=== PATIENT | male | born 1950 | race Caucasian/White ===

== ENCOUNTER 2018-06-16 08:11 | Inpatient (IN) ==
[2018-06-16] MEDS ORDERED: ASPIRIN PO ONE (08:21)
[2018-06-16] MEDS ORDERED: NS 1,000 ML IV ONE ×2 (08:42)
--- NOTE | 2018-06-16 08:47 | PROVIDER DOCUMENTATION ---
HPI-Abdominal Pain/GI Problem - General Chief Complaint: Chest Pain Stated Complaint: V / D / CHEST PAIN Time Seen by Provider: 06/16/18 08:36 Allergies/Adverse Reactions: Patient Allergies Allergy/AdvReac Type Severity Reaction Status Date / Time No Known Allergies Allergy Verified 09/20/17 11:19 Home Medications: Home Medication List Medication Instructions Recorded Confirmed Last Taken Type Meloxicam [Mobic] 15 mg PO DAILY 07/26/14 07/03/17 11/11/16 History Tamsulosin [Flomax] 0.4 mg PO BID 07/26/14 07/03/17 11/11/16 09:00 History Montelukast Sodium [Singulair] 10 mg PO DAILY 04/06/16 07/03/17 11/11/16 History Cyclobenzaprine [Flexeril] 10 mg PO HS 06/14/16 07/03/17 11/11/16 History Dutasteride [Avodart] 0.5 mg PO DAILY 06/14/16 07/03/17 11/11/16 History Alprazolam 0.25 mg PO PRN PRN 07/03/17 07/03/17 Unknown History Amlodipine [Norvasc] 10 mg PO DAILY 07/03/17 07/03/17 Unknown History Amoxicillin/Potassium Clav 1 tab PO BID 07/03/17 07/03/17 Unknown History [Augmentin 875-125 Tablet] Fluticasone 50 Mcg Nasal Randolph 2 spray MELISSA BID 07/03/17 07/03/17 Unknown History [Flonase] Irbesartan/Hydrochlorothiazide 1 tab PO DAILY 07/03/17 08/18/17 Unknown History [Irbesartan-Hctz 300-12.5 mg Tb] Methylprednisolone [Medrol Dosepak] 4 mg PO DIRECTED 07/03/17 07/03/17 Unknown History Omeprazole 20 mg PO DAILY 07/03/17 07/03/17 Unknown History Sotalol HCl [Sotalol] 1 tab PO BID 08/18/17 08/18/17 Unknown History Terazosin HCl 2 mg PO QHS 08/18/17 08/18/17 Unknown History - History of Present Illness-ABD Nature of Presenting Problems: patient woke up this AM, abdomen was bloating then he was having diarrhea, vomited couple time. since then he had back pain, chest pain and palpatation. Abdominal Pain Onset Location: reports: generalized abdomen Pain Radiation: reports: no radiation Quality of Pain: reports: cramping Severity in ED: reports: moderate Onset/Duration: reports: 24 hours ago Timing: reports: improving Activities at Onset: reports: none Exposure to sick contacts?: No Modifying Factors: improves with: nothing Associated Symptoms: reports: chest pain, diarrhea, fatigue, malaise Last BM: unsure Dark Stools Present?: reports: none noticed Rectal Bleeding: reports: none Rectal Pain: reports: none Bruising or Bleeding Gums?: No Similar Symptoms Previously?: No Recently seen or treated by another doctor?: No Review of Systems - Adult - REVIEW OF SYSTEMS - ADULT Constitutional: reports: see HPIyolanda. denies: fever Eyes: reports: no symptoms reported Ears, Nose, Mouth & Throat: reports: no symptoms reported Cardiovascular: reports: see HPI, palpitations Respiratory: reports: no symptoms reported Gastrointestinal: reports: diarrhea, nausea, vomiting Genitourinary: reports: no symptoms reported Musculoskeletal: reports: back pain Integumentary: reports: no symptoms reported Neurological: reports: no symptoms reported Psychiatric: reports: no symptoms reported Endocrine: reports: no symptoms reported Hematologic/Lymphatic: reports: no symptoms reported Allergic/Immunologic: reports: no symptoms reported Past History - Adult - PAST MEDICAL HISTORY-ADULT Review of Records: reports: Nursing Assessment Review Major Childhood Illnesses: reports: denies history Cardiovascular: reports: A-Fib, HTN, hyperlipidemia Respiratory: reports: denies history Gastrointestinal: reports: denies history Obstetrical/Gynecological: reports: denies history Genitourinary: reports: prostatitis Musculoskeletal: reports: denies history Neurological: reports: denies history Endocrine/Immune: reports: denies history Other Conditions: reports: denies history - PRIOR SURGERIES/PROCEDURES Surgical/Procedure History: reports: hernia repair, other (heart ablasion) - PRIOR HOSPITALIZATIONS Prior Hospitalizations: reports: none - IMMUNIZATION STATUS Childhood Immunizations: See Nurse Assessment Flu Vaccine: See Nurse Assessment - FAMILY HISTORY Family History: reviewed, not pertinent Physical Exam-General - PHYSICAL EXAM-ADULT Initial Vital Signs Reviewed: Yes - CONSTITUTIONAL General Appearance: alert, no apparent distress - EYES Eyes: PERRL/EOMI - HEAD, EARS, NOSE, MOUTH & THROAT HENMT: normocephalic/atraumatic, moist mucous membranes - NECK Neck: non-tender, supple - RESPIRATORY Respiratory: chest non-tender, lungs clear - CARDIOVASCULAR Cardiovascular: normal peripheral pulses, no edema, no gallop, no JVD, no murmur , tachycardia - GASTROINTESTINAL (ABDOMEN) Abdominal Exam: normal bowel sounds, non tender - LYMPHATIC Lymphatic: no adenopathy - MUSCULOSKELETAL Back Exam: no CVA tenderness, no vertebral tenderness Extremity: non-tender, normal gait - SKIN Integumentary: normal color, normal turgor - NEUROLOGIC Neurologic: car wrecker II-XII nml as tested, grossly normal, no motor/sensory deficits Progress - PLAN OF CARE/RESULTS Progress/Plan/Lab Results: Vital Signs - 8 hr 06/16/18 08:26 Temperature 98.9 F Pulse Rate 130 H Respiratory Rate 18 Blood Pressure 145/95 Orders Category Date Time Status Cardiac Monitoring DIRECTED Care 06/16/18 08:21 Active Oxygen Therapy- ED Nursing DIRECTED Care 06/16/18 08:21 Active Saline Loc NOW Care 06/16/18 08:21 Active CHEST-2 VIEWS [RAD] Stat Exams 06/16/18 08:21 Ordered CBC WITH ELECTRONIC DIFF [HEME] Stat Lab 06/16/18 08:35 Ordered CK PROFILE [SP CHEM] Stat Lab 06/16/18 08:35 Ordered COMPREHENSIVE METABOLIC PANEL [CHEM] Stat Lab 06/16/18 08:35 Ordered PRO B-NATRIURETIC PEPTIDE Stat Lab 06/16/18 08:35 Ordered PROTIME WITH INR [COAG] Stat Lab 06/16/18 08:35 Ordered PTT [COAG] Stat Lab 06/16/18 08:35 Ordered TROPONIN T Stat Lab 06/16/18 08:35 Ordered Aspirin Med 06/16/18 08:21 Discontinued 325 mg PO NOW ONE Ns 1000 ml IV Bolus X1 Med 06/16/18 08:42 Ordered 0.9% Sodium Chloride Inj [Ns] 1,000 ml IV 999 mls/hr Ns 1000 ml IV Bolus X1 Med 06/16/18 08:42 Ordered 0.9% Sodium Chloride Inj [Ns] 1,000 ml IV 999 mls/hr CP/SOB/Palp >45 yrs of Age Stat Oth 06/16/18 08:21 Ordered EKG [EKG] Stat Ther 06/16/18 08:21 Ordered Result Diagrams: 06/16/18 08:40 06/16/18 08:40 - REASSESSMENT Reassessment #1 Status: improving (patient felt a little bit better but the heart rate was still fast at 125) - EKG 1 Rate: 130 Rhythm: sinus QRS: normal, other UT Interval: normal ST Wave: normal Comments: non specific ST/ QRS-T angle Departure - Departure Date of Disposition Decision: 06/16/18 Time of Disposition Decision: 13:29 DIAGNOSIS: Enteritis, Chest pain Disposition: ADMITTED INPATIENT 09 Certified Medical Emergency: Emergent Condition: Good - Critical Care Note This patient required my direct & personal management of CC.: No Attestation - Physician/ CHONG Attestation Patient care was provided by Advanced Practice Provider:: No The physician spent face to face time with patient:: Yes Advanced Practice Provider documentation review:: Supervising physician onsite and consulted in the evaluation and care of this patient. The physician did have a face to face encounter with the patient.
[2018-06-16 09:08] LABS: AGAP 13; ALBUMIN 4.2 g/dL (3.5-5.0); ALKALINE PHOSPHATASE 98 U/L (32-122); BUN 22 mg/dL (8-22); CALCIUM 8.4 mg/dL (8.8-10.2); CHLORIDE 96 mmol/L (98-107); CK PROFILE 41 U/L (24-204); COSMO 277; ESTIMATED GFR > 60; GLUCOSE 127 mg/dL (70-104); GOT 48 U/L (10-34); GPT 73 U/L (10-44); POTASSIUM 3.6 mmol/L (3.5-5.1); SODIUM 136 mmol/L (136-145); TCO2 27 mmol/L (25-35); TOTAL PROTEIN 7.3 g/dL (6.3-8.3)
--- NOTE | 2018-06-16 09:09 | Diag Imaging Result Doc PS360 ---
EXAM: CHEST-2 VIEWS HISTORY: chest pain TECHNIQUE: Chest two views COMPARISON: 12/20/2017 FINDINGS: The lungs are well expanded. The heart is not enlarged. The vessels are not distended. There are no infiltrates. No pleural effusions. IMPRESSION: No acute abnormality. Electronically signed by Joshua Recinos 06/16/2018 9:06 AM
[2018-06-16 09:17] LABS: BASO# 0.01 X1000 (0.0-0.2); BASO% 0.1 % (0.0-0.8); EOS% 0.8 % (0.0-10.0); HEMATOCRIT 43.7 % (42.0-52.0); HEMOGLOBIN 15.7 g/dL (14.0-18.0); IMM GRAN# 0.03 X1000 (0.0-0.04); IMM GRAN% 0.3 % (0.0-0.5); LYMPH# 0.47 X1000 (1.2-3.4); MCH 29.8 PG (27-31); MCHC 35.9 g/dL (33-37); MCV 83.1 FL (81-99); MONO# 0.64 X1000 (0.11-0.59); MONO% 5.4 % (1.7-9.3); MPV 9.2 FL (7.4-10.4); NEUT# 10.58 X1000 (1.4-6.5); NEUT% 89.4 % (42.2-75.2); PLT 177 X1000 (130-400); RBC 5.26 XMIL (4.7-6.1); RDW 13.3 % (11.5-14.5); WBC 11.83 X1000 (4.8-10.8)
[2018-06-16 09:26] LABS: INR 0.99; PROTIME 13.6 Seconds (11.0-16.0)
[2018-06-16 09:27] LABS: PTT 23.2 Seconds (22.3-41.8)
[2018-06-16] MEDS ORDERED: MORPHINE IV ONE (09:27)
[2018-06-16] MEDS ORDERED: ZOFRAN IV ONE (09:27)
--- NOTE | 2018-06-16 10:15 | Diag Imaging Result Doc PS360 ---
EXAM: CT ABD/PELVIS W/IV CONT ONLY HISTORY: LLQ pain, TECHNIQUE: CT abdomen and pelvis with intravenous contrast COMPARISON: 04/06/2016 FINDINGS: No calcified gallstones or adjacent inflammation. No focal hepatic abnormality. Normal spleen, pancreas, adrenal glands, and kidneys. No hydronephrosis. No aortic aneurysm. Moderate atherosclerosis. Mild fluid distended small bowel loops in the upper and mid abdomen. The distal small bowel loops are not dilated. No inflammation about the cecum. No abscess. There are scattered colonic diverticula. The prostate is enlarged measuring at least 5.3 x 5.9 x 6.3 cm. The urinary bladder is moderately distended and is normal. There are fat filled inguinal hernias, right greater than left. No bowel loops within these. IMPRESSION: 1.Partial small bowel obstruction versus enteritis and ileus 2.Diverticulosis 3.Enlarged prostate 4.Fat filled inguinal hernias This exam was performed using automated exposure control, adjustment of mA or kV according to patient size, and/or use of iterative reconstruction technique. Electronically signed by Joshua Recinos 06/16/2018 10:13 AM
--- NOTE | 2018-06-16 13:34 | HISTORY AND PHYSICAL ---
PRIMARY CARE PHYSICIAN: Maverick Mon DO CHIEF COMPLAINT: Abdominal bloating with nausea/vomiting and diarrhea this a.m. around 4 a.m. HISTORY OF PRESENTING ILLNESS: This is a 68-year-old male who presents to [facility] ER after he was awakened around 4 a.m. this morning with abdominal bloating and began having nausea/vomiting, and states he began vomiting up some stool and also having liquid diarrhea. States that he has been on 3 antibiotics over the past 1 to 2 weeks after being diagnosed with pneumonia. His workup in the emergency room showed a chest x-ray with no acute abnormality, an abdomen and pelvic CT that showed an impression of a partial small-bowel obstruction versus enteritis and ileus. He did have a slight elevation in his liver enzymes with an AST of 48, ALT 73, so he will be admitted for further evaluation and treatment. PAST MEDICAL HISTORY: Atrial fibrillation, hypertension, hyperlipidemia, and prostatitis. PAST SURGICAL HISTORY: Hernia repair and a heart ablation. FAMILY HISTORY: Reviewed and noncontributory. SOCIAL HISTORY: Currently lives with family. Denies any tobacco, alcohol, or illicit drug use. ALLERGIES: He has no known drug allergies. HOME MEDICATIONS: A current list will need to be obtained reconciled, reviewed, then restarted as appropriate. We will place an order for Nursing to update and confirm home medications. DIAGNOSTIC STUDIES: Laboratory data showed a white blood cell count of 11.83, hemoglobin 15.7, hematocrit 43.7, platelets 177,000. PT of 13.6 and INR 0.99. Sodium 136, potassium 3.6, chloride 96, CO2 of 27, BUN of 22, creatinine 1, glucose 127, AST of 48, ALT 73. Cardiac enzyme was negative. ProBNP of 117. Chest x-ray showed no acute abnormality. CT of the abdomen and pelvis with IV contrast showed a partial small-bowel obstruction versus enteritis and ileus, diverticulosis, enlarged prostate, and a fat-filled inguinal hernia. REVIEW OF SYSTEMS: He denied any fever, chills, blurred vision, dizziness, chest pain, coughing, shortness of breath. He has had abdominal bloating, nausea/vomiting, and diarrhea. Denied any burning or hurting with urination. PHYSICAL EXAMINATION: VITAL SIGNS: On arrival he had a temperature of 98.9 degrees, pulse 130, respirations 18, blood pressure 145/95, saturating 97% on room air is. GENERAL: This is a 68-year-old male, who is sitting up in the bed and answers questions appropriately. HEMNT: Normocephalic, atraumatic. Normal ENT inspection. Oropharynx and nares are clear. EYES: Pupils are equal, round, and reactive to light and accommodation. Extraocular movements are intact. NECK: Normal inspection. Normal range of motion. LUNGS: Clear to auscultation bilaterally with equal lung expansion and chest wall movement. HEART: With regular rate and rhythm. No murmurs, rubs, or gallops. ABDOMEN: Distended, mildly firm. Hypoactive bowel sounds. MUSCULOSKELETAL: He has 5/5 strength x4 extremities. NEUROLOGICAL: The cranial nerves 2 through 12 appear grossly intact. ASSESSMENT: 1. A partial small bowel obstruction versus an ileus and enteritis. 2. Generalized abdominal pain. 3. Nausea/vomiting, diarrhea. OUR PLAN: He is being admitted to the medical unit at [place], placed on telemetry. We are going to consult General Surgery. We will check him for a C difficile antigen, C difficile toxin, and H pylori antigen. Ice chips sparingly. We need to update and confirm home medications. Place him on Levaquin 500 mg IV q.24 h., Flagyl 500 mg IV q.8 h., and normal saline at 125 mL an hour. We will recheck a CBC, BMP in the a.m. Further orders after being seen by attending and by consultants. Dictated by MCKENZIE Soliz for Sj Clements MD Addendum: Patient seen and examined by myself. Agree with MCKENZIE notes. It reflects my assessment and plan. Patient is being admitted to hospital for possible ileus and enteritis. Will provide IV fluids and pain medications. Will consult Surgery. Will follow recommendations. cc: MCKENZIE Soliz MD Thomas E. Lockard, DO RIOS
[2018-06-16] MEDS ORDERED: ZOFRAN IV PRN (13:49)
[2018-06-16] MEDS: FLAGYL 500 MG/NS 500 MG/100 ML IVPB IV SCH ×2 (17:16→22:14)
[2018-06-16] MEDS: NS 1,000 ML IV SCH (17:17)
[2018-06-16] MEDS: LEVAQUIN 500 MG/D5W 500 MG/100 ML IVPB IV SCH (17:17)
--- NOTE | 2018-06-16 18:34 | EKG Report ---
Test Performed on : 06/16/2018 08:29:52 AM Test Reason : chest pain Blood Pressure : / mmHG Vent. Rate : 130 BPM Atrial Rate : 130 BPM P-R Int : 138 ms QRS Dur : 088 ms QT Int : 288 ms P-R-T Axes : -06 065 -17 degrees QTc Int : 423 ms Sinus tachycardia. Nonspecific ST abnormality Abnormal QRS-T angle, consider primary T wave abnormality Abnormal ECG When compared with ECG of 19-DEC-2017 23:43, Vent. rate has increased BY 49 BPM Criteria for Lateral infarct are no longer present T wave inversion now evident in Inferior leads Nonspecific T wave abnormality no longer evident in Lateral leads Unconfirmed Result
[2018-06-16] MEDS ORDERED: MORPHINE IV PRN (20:36)
--- NOTE | 2018-06-16 22:46 | GENERAL SURGERY CONSULTATION ---
DATE: 06/16/2018 REASON FOR CONSULTATION: Small bowel obstruction. HISTORY OF PRESENT ILLNESS: This is a 68-year-old male who was awakened early this morning with bloating, multiple episodes of diarrhea followed by multiple episodes of nausea and vomiting followed by abdominal soreness that has persisted throughout the day. He went to the ER for this. He has had a couple small bowel movements since that time. No more vomiting. No fevers or chills. He recently was being treated for pneumonia on several different antibiotics over the last few weeks. However, his workup in the emergency room included a chest x-ray which was normal and an abdominal pelvis CT scan which showed some mild to moderate dilated small bowel proximally with distal decompression. PAST MEDICAL HISTORY: Atrial fibrillation, hypertension, hyperlipidemia, prostatitis. PAST SURGICAL HISTORY: Left inguinal hernia repair, umbilical hernia repair, heart ablation. ALLERGIES: No known drug allergies. HOME MEDICATIONS: Include Singulair, Avodart, irbesartan, hydrochlorothiazide, sotalol, Mobic. FAMILY HISTORY: Reviewed and noncontributory. SOCIAL HISTORY: He denies tobacco, alcohol or illicit drug use. REVIEW OF SYSTEMS: Ten systems reviewed and negative except as noted above. PHYSICAL EXAMINATION: Vital Signs: Temperature 98 degrees, pulse 78, respirations 18, blood pressure 126/72, O2 saturation 98%. General: Well-developed, well-nourished male in no distress who looks stated age. HEENT: Normocephalic, atraumatic. Extraocular muscles intact. Pupils equal, round, reactive to light. Sclerae anicteric. Moist mucous membranes. Hearing grossly normal. Neck: Supple. No thyromegaly. CV: Regular rate and rhythm. Respiratory: Bilateral breath sounds. No work of breathing. GI: Soft, nondistended. No organomegaly or mass. Mild tenderness diffusely. No rebound or guarding. No hernias. Extremities: No clubbing, cyanosis, or edema. Skin: Warm and dry. No rash. Musculoskeletal: Moves all extremities equally well. LABORATORY: White blood cell count 11.8, hemoglobin 15, hematocrit 43, platelet count 177,000. Electrolytes reviewed and generally unremarkable. Mildly elevated AST and ALT. C difficile toxin in the stool was negative. C difficile antigen in the blood is negative. IMAGING: Abdomen and pelvis CT scan with findings as noted above. ASSESSMENT AND PLAN: A 68-year-old male with diarrhea, nausea, vomiting, and abdominal soreness. The imaging findings could represent partial small bowel obstruction but I favor more likely viral gastroenteritis. We will observe for now and repeat an x-ray in the morning. I will let him have his home medicines but otherwise will be NPO for now. cc: Maycol Carrasco MD
[2018-06-17] MEDS: FLAGYL 500 MG/NS 500 MG/100 ML IVPB IV SCH ×3 (06:05→22:19)
[2018-06-17] MEDS: NS 1,000 ML IV SCH ×4 (06:08→22:33)
[2018-06-17 07:33] LABS: AGAP 8; BUN 14 mg/dL (8-22); CALCIUM 7.8 mg/dL (8.8-10.2); CHLORIDE 101 mmol/L (98-107); COSMO 270; CREATININE 0.7 mg/dL (0.7-1.2); ESTIMATED GFR > 60; GLUCOSE 88 mg/dL (70-104); POTASSIUM 3.5 mmol/L (3.5-5.1); SODIUM 135 mmol/L (136-145); TCO2 26 mmol/L (25-35)
[2018-06-17 07:44] LABS: EOS# 0.07 X1000 (0.0-0.7); EOS% 1.5 % (0.0-10.0); HEMATOCRIT 35.6 % (42.0-52.0); HEMOGLOBIN 12.3 g/dL (14.0-18.0); IMM GRAN# 0.02 X1000 (0.0-0.04); IMM GRAN% 0.4 % (0.0-0.5); LYMPH# 0.92 X1000 (1.2-3.4); LYMPH% 19.7 % (20.5-51.1); MCH 30.4 PG (27-31); MCHC 34.6 g/dL (33-37); MCV 88.1 FL (81-99); MONO% 8.5 % (1.7-9.3); MPV 9.7 FL (7.4-10.4); NEUT# 3.27 X1000 (1.4-6.5); NEUT% 69.9 % (42.2-75.2); PLT 152 X1000 (130-400); RBC 4.04 XMIL (4.7-6.1); RDW 13.4 % (11.5-14.5); WBC 4.68 X1000 (4.8-10.8)
--- NOTE | 2018-06-17 08:01 | Diag Imaging Result Doc PS360 ---
FLAT/UPRIGHT ABD/1 VIEW CHEST - 06/17/2018 INDICATION: n/v, abdominal pain TECHNIQUE: COMPARISON: 06/16/2018 FINDINGS: The chest is clear. There is a nonobstructive bowel gas pattern. No free air or abnormal calcifications. IMPRESSION: Negative exam. Electronically signed by Omar King 06/17/2018 7:58 AM
[2018-06-17] MEDS ORDERED: HYDROCHLOROTHIAZIDE PO SCH ×2 (09:00→12:00)
[2018-06-17] MEDS ORDERED: AVAPRO PO SCH ×2 (09:00→12:00)
[2018-06-17] MEDS ORDERED: BETAPACE PO SCH (09:00)
[2018-06-17] MEDS: SINGULAIR PO SCH (09:07)
[2018-06-17] MEDS: FLONASE NAS SCH ×2 (09:08→22:17)
[2018-06-17] MEDS: AVODART PO SCH (09:08)
[2018-06-17] MEDS: BETAPACE PO SCH (12:51)
--- NOTE | 2018-06-17 13:38 | PROGRESS NOTE ---
DATE: 06/17/2018 SUBJECTIVE: The patient reports feeling fine. Reports definitely less episodes of diarrhea. Reports no abdominal pain. He is not nauseated. The patient reports that he was tolerating his clear liquid diet this morning very well. OBJECTIVE: Vital Signs: Temperature 97.7 degrees, heart rate 60, respiratory rate 18, blood pressure 118/65, and O2 saturation 100% on room air. General: This is a 68-year-old male lying in bed in no acute distress. Cardiovascular: S1, S2 heard. No murmurs, gallops, or rubs. Regular rate and rhythm. Respiratory: Clear bilaterally to auscultation. No work of breathing or using accessory muscles. Abdomen: Soft, nontender to palpation. Bowel sounds present. No organomegaly. Extremities: No clubbing, cyanosis, or edema. Peripheral pulses present in both legs. Neurological: Patient alert and oriented x3. Moves 4 extremities. LABORATORY DATA: Reviewed. ASSESSMENT AND PLAN: Acute gastroenteritis. Initially, the patient was admitted to the hospital because of possible partial small bowel obstruction. Patient's x-ray this morning shows no obstruction pattern. The patient has had a bowel movement. Patient is tolerating a clear liquid diet. At this point, we are going to advance his diet as tolerated. We are going to keep this patient one more day in the hospital. If he is feeling better and feeling normal, we can let him go. General Surgery has been consulted. We appreciate his input. cc: Sj Clements MD
[2018-06-17] MEDS: LEVAQUIN 500 MG/D5W 500 MG/100 ML IVPB IV SCH (14:32)
--- NOTE | 2018-06-17 19:19 | GENERAL SURGERY PROGRESS NOTE ---
DATE: 06/17/2018 SUBJECTIVE: The patient is doing much better. He denies any abdominal pain. He just feels a little sore. No nausea or vomiting. He is tolerating liquids. He has had flatus and a bowel movement. OBJECTIVE: Vital Signs: He is afebrile. Vital signs are stable. General: He is awake, alert, oriented x3. No acute distress. CV: Regular rate and rhythm. Gastrointestinal: Soft, nontender, nondistended. IMAGING: Abdominal x-ray this morning showed a nonobstructive gas pattern. ASSESSMENT AND PLAN: A 68-year-old male with acute gastroenteritis. He is much improved. There is no evidence of bowel obstruction. We can advance his diet and he can be discharged home per the primary team. cc: Maycol Carrasco MD
[2018-06-17] MEDS ORDERED: HYTRIN PO SCH (21:00)
[2018-06-17] MEDS ORDERED: KLONOPIN PO SCH (21:00)
[2018-06-18] MEDS: BETAPACE PO SCH (06:05)
[2018-06-18] MEDS: FLAGYL 500 MG/NS 500 MG/100 ML IVPB IV SCH (06:07)
[2018-06-18 07:29] VITALS: BP 127/68
[2018-06-18 07:37] LABS: BASO# 0.01 X1000 (0.0-0.2); BASO% 0.2 % (0.0-0.8); EOS# 0.09 X1000 (0.0-0.7); EOS% 1.6 % (0.0-10.0); HEMATOCRIT 35.2 % (42.0-52.0); HEMOGLOBIN 12.5 g/dL (14.0-18.0); IMM GRAN# 0.01 X1000 (0.0-0.04); IMM GRAN% 0.2 % (0.0-0.5); LYMPH# 1.25 X1000 (1.2-3.4); LYMPH% 22.5 % (20.5-51.1); MCH 31.8 PG (27-31); MCHC 35.5 g/dL (33-37); MCV 89.6 FL (81-99); MONO# 0.55 X1000 (0.11-0.59); MONO% 9.9 % (1.7-9.3); MPV 9.5 FL (7.4-10.4); NEUT# 3.64 X1000 (1.4-6.5); NEUT% 65.6 % (42.2-75.2); PLT 156 X1000 (130-400); RBC 3.93 XMIL (4.7-6.1); WBC 5.55 X1000 (4.8-10.8)
[2018-06-18 08:14] LABS: AGAP 7; BUN 11 mg/dL (8-22); CALCIUM 7.9 mg/dL (8.8-10.2); CHLORIDE 103 mmol/L (98-107); COSMO 271; CREATININE 0.9 mg/dL (0.7-1.2); ESTIMATED GFR > 60; GLUCOSE 87 mg/dL (70-104); POTASSIUM 3.8 mmol/L (3.5-5.1); SODIUM 136 mmol/L (136-145); TCO2 25 mmol/L (25-35)
[2018-06-18] MEDS: FLONASE NAS SCH (09:00)
[2018-06-18] MEDS: AVODART PO SCH (09:00)
[2018-06-18] MEDS: NS 1,000 ML IV SCH (09:00)
[2018-06-18] MEDS: SINGULAIR PO SCH (09:01)
--- NOTE | 2018-06-18 14:41 | DISCHARGE SUMMARY ---
ADMISSION DATE: 06/16/2018 DISCHARGE DATE: 06/18/2018 PRIMARY CARE PHYSICIAN: Dr. Maverick Mon. ADMISSION DIAGNOSES: 1. Partial small bowel obstruction versus an ileus and enteritis. 2. Generalized abdominal pain. 3. Nausea, vomiting and diarrhea. DISCHARGE DIAGNOSES: 1. Acute gastroenteritis with no evidence of bowel obstruction per Surgery. 2. Generalized abdominal pain, resolved. 3. Nausea, vomiting and diarrhea resolved. SUMMARY OF FINDINGS: This is a 68-year-old male who was awakened around 04:00 on the morning of arrival with abdominal bloating. He began having nausea and vomiting, he states that he had thrown up some stool, and also having liquid diarrhea. He had been on 3 antibiotics over the past 1 to 2 weeks after being diagnosed with pneumonia. His workup in the emergency room showed an abdomen and pelvic CT. It showed an impression of partial small-bowel obstruction versus enteritis and ileus. He was admitted. We did have Surgery to come see the patient. We did C. Difficile toxin that was negative. Clostridium difficile antigen that was negative. Surgery felt that, in his progress note yesterday, that this was just an acute gastroenteritis, that he was much improved with no evidence of a bowel obstruction. We advanced his diet. He has tolerated it well with no further nausea, vomiting, or diarrhea, and he has remained afebrile. White blood cell count is normal at 5.5. It is felt that he can safely be discharged home today. DISCHARGE MEDICATIONS: 1. Klonopin 0.5 mg 1 to 2 capsules p.o. at bedtime. 2. Avodart 0.5 mg p.o. daily. 3. Flonase 2 sprays nasally b.i.d. 4. Irbesartan/hydrochlorothiazide 300/12.5 one p.o. daily. 5. Avapro 300 mg p.o. daily. 6. Singulair 10 mg p.o. daily. 7. Sotalol 80 mg p.o. b.i.d. 8. Terazosin 2 mg p.o. at bedtime. 9. Hydralazine 25 mg p.o. daily. 10. A prescription for Flagyl 500 mg p.o. t.i.d. #10 with no refills. FOLLOW-UP: She will need to follow up with her primary care physician in the next 1 to 2 weeks and call his office for an appointment. TIME SPENT WITH PATIENT: 35 minute discharge. Dictated by MCKENZIE Soliz for Sj Clements MD Addendum: Patient seen and examined by myself. Agree with MCKENZIE note. It reflects my assessment and plan. Patient is being discharged from hospital in stable condition. cc: MCKENZIE Soliz MD Thomas E. Lockard, DO MTDD
== END 2018-06-18 13:31 | disposition home or self-care (01) | DRG 392 ==
LOC: P.ED 08:11 → SUATTDRO 12:17 → P.MEDSURG 12:17
PROVIDERS: ATTEND Internal Medicine
CPT/HCPCS: 71020; 71046; 74022; 74177; 80048; 80053; 82550; 83880; 84484; 85025; 85610; 85730; 87324; 87338; 87449; 93005; 96361; 96374; 99284; A9270; J1956; J2270; J2405; J7030; Q9967; S0030